=== PATIENT | male | born 1950 | race Caucasian/White ===

== ENCOUNTER 2018-10-30 19:16 | Observation (INO) | payer OTHER ==
[2018-10-30 19:37] VITALS: BMI 31.3
--- NOTE | 2018-10-30 19:56 | PDOC ---
Attending Attestation - Resident Resident Name: Clark Ramírez - ED Attending Attestation I have performed the following: I have examined & evaluated the patient, The case was reviewed & discussed with the resident, I agree w/resident's findings & plan - HPI HPI: 10/30/18 21:50 see resident hpi - Physicial Exam PE: 10/30/18 21:50 agree with resident exam - Medical Decision Making 10/30/18 21:50 68 yo male with chest pain EKG shows a normal sinus rhythm at 86 bpm with a right bundle-branch block There is no old available for comparison First troponin is within normal limits Patient will be held for observation for serial troponins due to patient's age and lack of previous/baseline stress testing in the past
--- NOTE | 2018-10-30 19:59 | PDOC ---
History of Present Illness - General Chief Complaint: Chest Pain Stated Complaint: CHEST PAIN Time Seen by Provider: 10/30/18 19:45 History Source: Patient Exam Limitations: No Limitations - History of Present Illness Initial Comments: 10/30/18 19:58 68M with no PMH (borderline diabetes documented on prior visit) who presents to the ER with complaints of chest pain. The patient states that around 1500 today , he developed L sided chest pain which lasted for 20-30 minutes and resolved on its own. About 1 hour after, he developed retrosternal chest pressure, improving since its onset, nonradiating, atraumatic, nonreproducible, nonpleuritic, without nausea, vomiting, diaphoresis, palpitations, shortness of breath, or lightheadedness. Past History - Past Medical History Allergies/Adverse Reactions: Allergies Allergy/AdvReac Type Severity Reaction Status Date / Time No Known Allergies Allergy Verified 10/18/17 10:06 Home Medications: Ambulatory Orders Meclizine HCl [Antivert -] 25 mg PO TID #21 tablet 10/18/17 Metformin HCl [Glucophage] 500 mg PO BID 10/18/17 COPD: No Diabetes: Yes (BORDERLINE) - Surgical History Appendectomy: Yes (29YRS AGO) - Immunization History Immunization Up to Date: Yes - Suicide/Smoking/Psychosocial Hx Smoking History: Never smoked Have you smoked in the past 12 months: No Hx Alcohol Use: Yes (socially) Drug/Substance Use Hx: No Substance Use Type: Alcohol Review of Systems - Review of Systems Able to Perform ROS?: Yes Comments:: 10/30/18 20:12 GENERAL/CONSTITUTIONAL: No fever or chills. No weakness. HEAD, EYES, EARS, NOSE AND THROAT: No change in vision. No ear pain or discharge. No sore throat. CARDIOVASCULAR: + for chest pain. No palpitations or lightheadedness. RESPIRATORY: No cough, wheezing, shortness of breath, or hemoptysis. GASTROINTESTINAL: No abdominal pain, nausea, vomiting, diarrhea, or constipation. GENITOURINARY: No dysuria, frequency, hematuria, or change in urination. MUSCULOSKELETAL: No joint or muscle swelling or pain. No neck or back pain. SKIN: No rash or lesions. NEUROLOGIC: No headache, numbness, tingling, focal weakness, loss of consciousness, or change in strength/sensation. Is the patient limited [place] Islander proficient: No *Physical Exam - Vital Signs Last Vital Signs Temp Pulse Resp BP Pulse Ox 98.8 F 95 H 19 120/79 98 10/30/18 19:30 10/30/18 19:30 10/30/18 19:30 10/30/18 19:30 10/30/18 19:30 - Physical Exam Comments: 10/30/18 20:12 GENERAL: Well developed, well nourished. Awake and alert. No acute distress. HEENT: Normocephalic, atraumatic. Hearing grossly normal. Moist mucous membranes. PERRLA, EOMI. No conjunctival pallor. Sclera are non-icteric. NECK: Supple. Full ROM. No JVD. CARDIOVASCULAR: Regular rate and rhythm. No murmurs, rubs, or gallops. PULMONARY: No evidence of respiratory distress. Lungs clear to auscultation bilaterally. No wheezing, rales or rhonchi. ABDOMINAL: Soft. Non-tender. Non-distended. No rebound or guarding. GENITOURINARY: No CVA tenderness bilaterally. MUSCULOSKELETAL: No reproducible pain in chest wall. Normal range of motion at all joints. No bony deformities or tenderness. EXTREMITIES: No cyanosis. No clubbing. No edema. No calf tenderness or swelling. SKIN: Warm and dry. Normal capillary refill. No rashes. No jaundice. NEUROLOGICAL: Alert, awake, appropriate. Cranial nerves 2-12 grossly intact. Normal speech. Gait is normal without ataxia. PSYCHIATRIC: Cooperative. Good eye contact. Appropriate mood and affect. Heart Score/ECG Review - History History: Moderately suspicious - Electrocardiogram EKG: Non specific repolarization disturbance - Age Age: >/= 65 - Risk Factors Based on the list above the patient has:: No risk factors known - Troponin Troponin: </= normal limit - Score Heart Score - Total: 4 #1 ECG reviewed & interpreted by me at: 20:18 General ECG Interpretation: Sinus Rhythm, Normal Rate, Normal Intervals, No acute ischemic changes Compared to previous ECG there are: No significant change 10/30/18 20:18 NSR vent rate 90 WV 172 QRS 138 QTc 476 RBBB noted, unchanged from 2018 No STD or MEGHANA No signs of acute ischemia ED Treatment Course - LABORATORY CBC & Chemistry Diagram: 10/30/18 20:10 10/30/18 20:10 Medical Decision Making - Medical Decision Making 10/30/18 20:13 68M with no PMH who presents with improving chest pressure since 1500 today. He denies red flag associated symptoms including SOB, diaphoresis, radiation, pleurisy. Pt was given 2 nitro tabs and "a spray" by EMS which may have caused his improvement of symptoms. EKG unchanged from 2018. Pt resting comfortably but still stating that he has CP. Will give 162 asa. Pending CBC, CMP, troponin , and CXR. Likely obs for ACS workup as pt has had no prior echo's, stress, or cath. 10/30/18 21:33 CBC, CMP, trop negative. CXR pending. Will admit for ACS workup. 10/30/18 22:18 Pt endorsed to hospitalist team for admission. CXR negative on preliminary read. *DC/Admit/Observation/Transfer Diagnosis at time of Disposition: Chest pain Qualifiers: Chest pain type: unspecified Qualified Code(s): R07.9 - Chest pain, unspecified - Discharge Dispostion Condition at time of disposition: Guarded Decision to Admit order: Yes - Referrals Referrals: ON STAFF,NOT [Primary Care Provider] - - Patient Instructions - Post Discharge Activity
[2018-10-30 20:25] LABS: BASO % 0.9 % (0-2.0); EOS % 4.1 % (0-4.5); HEMATOCRIT 48.7 % (35.4-49); LYMPH % 42.4 % (8-40); MCH 30.3 pg (25.7-33.7); MCHC 32.9 g/dl (32.0-35.9); MEAN CELL VOLUME 92.2 fl (80-96); MEAN PLT VOLUME 8.8 fl (7.5-11.1); MONO % 10.1 % (3.8-10.2); NEUT % 42.5 % (42.8-82.8); PLATELET COUNT 177 K/MM3 (134-434); RBC 5.28 M/mm3 (4.00-5.60); RDW 14.3 % (11.9-15.9); WHITE BLOOD COUNT 5.1 K/mm3 (4.0-10.0)
[2018-10-30 20:39] LABS: INR 1.08 (0.83-1.09); PROTHROMBIN TIME (PATIENT) 12.8 SEC (9.7-13.0)
[2018-10-30 20:55] LABS: ALBUMIN 3.8 g/dl (3.4-5.0); ALK PHOS 62 U/L (45-117); ANION GAP 8 MMOL/L (8-16); BILIRUBIN,TOTAL 0.4 mg/dL (0.2-1); BLOOD UREA NITROGEN 13.9 mg/dL (7-18); CALCIUM 9.6 mg/dL (8.5-10.1); CHLORIDE 106 mmol/L (98-107); CO2 26 mmol/L (21-32); CREATININE 1.4 mg/dL (0.55-1.3); GLUCOSE,RANDOM 102 mg/dL (74-106); POTASSIUM 4.3 mmol/L (3.5-5.1); SGOT/AST 19 U/L (15-37); SGPT/ALT 29 U/L (13-61); SODIUM 140 mmol/L (136-145); TOT PROT 7.2 g/dl (6.4-8.2)
[2018-10-31] MEDS ORDERED: HEPARIN NA (PORCINE) 5,000 UNITS/ML 1ML VIAL SQ SCH ×2 (02:00→07:01)
--- NOTE | 2018-10-31 04:50 | PN ---
Teaching Attending Note Name of Resident: Armani Lopez ATTENDING PHYSICIAN STATEMENT I saw and evaluated the patient. I reviewed the resident's note and discussed the case with the resident. I agree with the resident's findings and plan as documented. SUBJECTIVE: 68yo man with prediabetes experienced chest pain which started 3pm on 10/30, while he was driving. Lasted 20 minutes and disappeared. Nonradiating, no SOB. OBJECTIVE: Last Vital Signs Temp Pulse Resp BP Pulse Ox 97.7 F 69 17 124/85 96 10/31/18 00:03 10/31/18 00:03 10/31/18 00:03 10/31/18 00:03 10/31/18 00:03 gen -nad, aaox3 heent -at, nc neck supple cv-s1+S2+rrr chest - no pain on palpation, breaths b/l clear ext - no pedal edema or clubbing Abnormal Lab Results 10/30/18 10/30/18 20:10 20:10 Neutrophils % 42.5 L Lymphocytes % 42.4 H Creatinine 1.4 H ASSESSMENT AND PLAN: chest pain-now resolved -r/o acs - tele/obs -trend trops -echo -cardiology consult -ngl prn -cardiac stress test -lipid panel, a1c -dvt ppx
[2018-10-31] MEDS: INSULIN SLIDING SCALE (NOVOLOG) 1 VIAL SQ SCH ×2 (07:11→11:29)
[2018-10-31 07:35] LABS: BASO % 0.7 % (0-2.0); EOS % 3.3 % (0-4.5); HEMATOCRIT 45.9 % (35.4-49); HEMOGLOBIN 15.5 GM/dL (11.7-16.9); LYMPH % 40.4 % (8-40); MCH 30.8 pg (25.7-33.7); MCHC 33.7 g/dl (32.0-35.9); MEAN CELL VOLUME 91.4 fl (80-96); MEAN PLT VOLUME 9.1 fl (7.5-11.1); MONO % 9.8 % (3.8-10.2); NEUT % 45.8 % (42.8-82.8); PLATELET COUNT 168 K/MM3 (134-434); RBC 5.02 M/mm3 (4.00-5.60); RDW 14.7 % (11.9-15.9); WHITE BLOOD COUNT 5.1 K/mm3 (4.0-10.0)
--- NOTE | 2018-10-31 07:44 | HP ---
CHIEF COMPLAINT: Chest pain for the past 10 hours PCP: HISTORY OF PRESENT ILLNESS: This is a 68 year old male with PMH significant for borderline DM. He presents with chest pain for the past 10 hours. It began while he was driving, initially in left axilla, shifted to a substernal position over the next hour. The pain was sudden in onset, 8/10 in intensity, pinching in quality, constant in nature , non radiating, no aggravating factors, and relieved by nitroglycerin. The pain is non reproducible and not pleuritic. After he felt the pain, he called EMS, who administered nitroglycerin sublingually. He states that his pain resolved shortly afterwards, and has not been in pain in the ER since arriving. He has no associated complaints of nausea, vomiting, diarrhea, fevers, chills, or SOB. ER course was notable for: (1) EKG: NSR with possible RBBB (2) Trops negative Recent Travel: None PAST MEDICAL HISTORY: Had similar episode of chest pain while driving 3 years ago, resolved spontaneously Pre-diabetes. 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 Smokinpack per day for 10 years, quit over 20 years ago Alcohol: 3-4 shots of cognac several nights a week Drugs: cocaine once a week for 3-4 years, last use in Family History: Brother had [place] at the age of 50-55 Allergies No Known Allergies Allergy (Verified 10/18/17 10:06) HOME MEDICATIONS: Home Medications Medication Instructions Recorded Metformin HCl [Glucophage] 500 mg PO BID 10/18/17 REVIEW OF SYSTEMS CONSTITUTIONAL: Absent: fever, chills, diaphoresis, generalized weakness, malaise, loss of appetite, weight change HEENT: Absent: rhinorrhea, nasal congestion, throat pain, throat swelling, difficulty swallowing, mouth swelling, ear pain, eye pain, visual changes CARDIOVASCULAR: chest pain Absent: chest pain, syncope, palpitations, irregular heart rate, lightheadedness , peripheral edema RESPIRATORY: Absent: cough, shortness of breath, dyspnea with exertion, orthopnea, wheezing, stridor, hemoptysis GASTROINTESTINAL: Absent: abdominal pain, abdominal distension, nausea, vomiting, diarrhea, constipation, melena, hematochezia GENITOURINARY: Absent: dysuria, frequency, urgency, hesitancy, hematuria, flank pain, genital pain MUSCULOSKELETAL: Absent: myalgia, arthralgia, joint swelling, back pain, neck pain SKIN: Absent: rash, itching, pallor HEMATOLOGIC/IMMUNOLOGIC: Absent: easy bleeding, easy bruising, lymphadenopathy, frequent infections ENDOCRINE: Absent: unexplained weight gain, unexplained weight loss, heat intolerance, cold intolerance NEUROLOGIC: Absent: headache, focal weakness or paresthesias, dizziness, unsteady gait, seizure, mental status changes, bladder or bowel incontinence PSYCHIATRIC: Absent: anxiety, depression, suicidal or homicidal ideation, hallucinations. PHYSICAL EXAMINATION Vital Signs - 24 hr 10/30/18 10/31/18 10/31/18 19:30 00:03 06:44 Temperature 98.8 F 97.7 F 97.5 F L Pulse Rate 95 H Pulse Rate [ 69 74 Left] Respiratory 19 17 18 Rate Blood Pressure 120/79 Blood Pressure 124/85 128/85 [Left Arm] O2 Sat by Pulse 98 96 97 Oximetry (%) GENERAL: Awake, alert, and fully oriented, in no acute distress. HEAD: Normal with no signs of trauma. EYES: Pupils equal, round and reactive to light, extraocular movements intact, sclera anicteric, conjunctiva clear. No lid lag. EARS, NOSE, THROAT: Ears normal, nares patent, oropharynx clear without exudates. Moist mucous membranes. NECK: Normal range of motion, supple without lymphadenopathy, JVD, or masses. LUNGS: Breath sounds equal, clear to auscultation bilaterally. No wheezes, and no crackles. No accessory muscle use. HEART: Regular rate and rhythm, normal S1 and S2 without murmur, rub or gallop. ABDOMEN: Soft, nontender, not distended, normoactive bowel sounds, no guarding, no rebound, no masses. No hepatomegaly or splenomegaly. MUSCULOSKELETAL: Normal range of motion at all joints. No bony deformities or tenderness. No CVA tenderness. UPPER EXTREMITIES: 2+ pulses, warm, well-perfused. No cyanosis. No clubbing. No peripheral edema. LOWER EXTREMITIES: 2+ pulses, warm, well-perfused. No calf tenderness. No peripheral edema. NEUROLOGICAL: Cranial nerves II-XII intact. Normal speech. Normal gait. PSYCHIATRIC: Cooperative. Good eye contact. Appropriate mood and affect. SKIN: Warm, dry, normal turgor, no rashes or lesions noted, normal capillary refill. Laboratory Results - last 24 hr 10/30/18 10/30/18 10/30/18 20:10 20:10 20:10 WBC 5.1 RBC 5.28 Hgb 16.0 Hct 48.7 MCV 92.2 MCH 30.3 MCHC 32.9 RDW 14.3 Plt Count 177 MPV 8.8 Absolute Neuts (auto) 2.2 Neutrophils % 42.5 L Lymphocytes % 42.4 H Monocytes % 10.1 Eosinophils % 4.1 Basophils % 0.9 Nucleated RBC % 0 PT with INR INR Sodium 140 Potassium 4.3 Chloride 106 Carbon Dioxide 26 Anion Gap 8 BUN 13.9 Creatinine 1.4 H Est GFR (CKD-EPI)AfAm 58.99 Est GFR (CKD-EPI)NonAf 50.90 POC Glucometer Random Glucose 102 Calcium 9.6 Magnesium 2.2 Total Bilirubin 0.4 AST 19 ALT 29 Alkaline Phosphatase 62 Creatine Kinase 127 Troponin I < 0.02 B-Natriuretic Peptide Total Protein 7.2 Albumin 3.8 10/30/18 10/30/18 10/31/18 20:10 21:49 01:19 WBC RBC Hgb Hct MCV MCH MCHC RDW Plt Count MPV Absolute Neuts (auto) Neutrophils % Lymphocytes % Monocytes % Eosinophils % Basophils % Nucleated RBC % PT with INR 12.80 INR 1.08 Sodium Potassium Chloride Carbon Dioxide Anion Gap BUN Creatinine Est GFR (CKD-EPI)AfAm Est GFR (CKD-EPI)NonAf POC Glucometer Random Glucose Calcium Magnesium Total Bilirubin AST ALT Alkaline Phosphatase Creatine Kinase 146 Troponin I < 0.02 B-Natriuretic Peptide 8.0 Total Protein Albumin 10/31/18 07:07 WBC RBC Hgb Hct MCV MCH MCHC RDW Plt Count MPV Absolute Neuts (auto) Neutrophils % Lymphocytes % Monocytes % Eosinophils % Basophils % Nucleated RBC % PT with INR INR Sodium Potassium Chloride Carbon Dioxide Anion Gap BUN Creatinine Est GFR (CKD-EPI)AfAm Est GFR (CKD-EPI)NonAf POC Glucometer 118 Random Glucose Calcium Magnesium Total Bilirubin AST ALT Alkaline Phosphatase Creatine Kinase Troponin I B-Natriuretic Peptide Total Protein Albumin ASSESSMENT/PLAN: 68 year old male with PMH significant for borderline DM. He presents with chest pain for the past 10 hours, admitted to r/o ACS. #Chest pain-now resolved -r/o acs - Trops negative, continue to trend - Echo ordered - Cardiology consult placed for possible cardiac stress test - Lipid profile ordered - On tele monitoring #Hx of pre-diabetes - HbA1c ordered - BGM - Novolog SS #FEN - Mg ordered #DVT PE - Heparin 5000 SQ #Code status - Full code Visit type - Emergency Visit Emergency Visit: Yes ED Registration Date: 10/30/18 Care time: The patient presented to the Emergency Department on the above date and was hospitalized for further evaluation of their emergent condition. - New Patient This patient is new to me today: Yes Date on this admission: 10/31/18 - Critical Care Critical Care patient: No ATTENDING PHYSICIAN STATEMENT I saw and evaluated the patient. I reviewed the resident's note and discussed the case with the resident. I agree with the resident's findings and plan as documented. SUBJECTIVE: OBJECTIVE: ASSESSMENT AND PLAN:
[2018-10-31 07:47] LABS: BLOOD UREA NITROGEN 12.7 mg/dL (7-18); CALCIUM 9.4 mg/dL (8.5-10.1); CREATININE 1.3 mg/dL (0.55-1.3)
--- NOTE | 2018-10-31 08:47 | PN ---
Progress Note, Physician History of Present Illness: This is a 68 year old male with PMH significant for borderline DM. He presents with chest pain for the past 10 hours. It began while he was driving, initially in left axilla, shifted to a substernal position over the next hour. The pain was sudden in onset, 8/10 in intensity, pinching in quality, constant in nature , non radiating, no aggravating factors, and relieved by nitroglycerin. The pain is non reproducible and not pleuritic. After he felt the pain, he called EMS, who administered nitroglycerin sublingually. He states that his pain resolved shortly afterwards, and has not been in pain in the ER since arriving. He has no associated complaints of nausea, vomiting, diarrhea, fevers, chills, or SOB. - Current Medication List Current Medications: Active Medications Heparin Sodium (Porcine) (Heparin -) 5,000 unit SQ TID SHERRIE Insulin Aspart (Novolog Vial Sliding Scale -) 1 vial SQ ACHS [facility]; Protocol Last Admin: 10/31/18 07:11 Dose: Not Given - Objective Vital Signs: Vital Signs Temperature 97.5 F L 10/31/18 06:44 Pulse Rate 74 10/31/18 06:44 Respiratory Rate 18 10/31/18 06:44 Blood Pressure 128/85 10/31/18 06:44 O2 Sat by Pulse Oximetry (%) 97 10/31/18 06:44 Labs: CBC, BMP 10/31/18 06:15 10/31/18 06:15 INR, PTT INR 1.08 (0.83-1.09) 10/30/18 20:10 Problem List - Problems (1) Pre-diabetes Code(s): R73.03 - PREDIABETES (2) Prophylactic measure Code(s): Z29.9 - ENCOUNTER FOR PROPHYLACTIC MEASURES, UNSPECIFIED (3) Chest pain Code(s): R07.9 - CHEST PAIN, UNSPECIFIED Qualifiers: Chest pain type: unspecified Qualified Code(s): R07.9 - Chest pain, unspecified
--- NOTE | 2018-10-31 11:01 | EKG ---
Test Reason : Blood Pressure : / mmHG Vent. Rate : 086 BPM Atrial Rate : 086 BPM P-R Int : 172 ms QRS Dur : 138 ms QT Int : 398 ms P-R-T Axes : 034 005 028 degrees QTc Int : 476 ms NORMAL SINUS RHYTHM RIGHT BUNDLE BRANCH BLOCK ABNORMAL ECG WHEN COMPARED WITH ECG OF 18-OCT-2017 10:17, NO SIGNIFICANT CHANGE WAS FOUND Confirmed by MAYRA COHEN MD ([id number]) on 10/31/2018 11:01:13 AM Referred By: Confirmed By:MAYRA COHEN MD
--- NOTE | 2018-10-31 11:30 | ECHO ---
Name: MAKSIM CHAPA Exam:Adult Echocardiogram Study Date: 10/31/2018 09:57 AM Age: 68 yrs Reason For Study: Chest pain Height: 67 in Weight: 200 lb BSA: 2.0 m2 MMode/2D Measurements & Calculations IVSd: 1.0 cm Ao root diam: 3.4 cm LVIDd: 3.9 cm LA dimension: 2.6 cm LVIDs: 2.5 cm LVPWd: 1.2 cm LVPWs: 1.1 cm EDV(Teich): 65.4 ml ESV(Teich): 21.3 ml LVOT diam: 2.1 cm LVLd ap4: 6.9 cm EDV(MOD-sp4): 51.0 ml LVLs ap4: 5.3 cm ESV(MOD-sp4): 26.0 ml SV(MOD-sp4): 25.0 ml Doppler Measurements & Calculations MV E max lambert: 53.3 cm/sec Ao V2 max: 110.1 cm/sec MV A max lambert: 86.4 cm/sec Ao max P.9 mmHg MV E/A: 0.62 Ao V2 mean: 76.8 cm/sec MV dec time: 0.23 sec Ao mean P.8 mmHg Ao V2 VTI: 18.8 cm RAMSEY(I,D): 3.3 cm2 RAMSEY(V,D): 2.9 cm2 LV V1 max P.4 mmHg SV(LVOT): 61.4 ml LV V1 mean P.8 mmHg LV V1 max: 92.8 cm/sec LV V1 mean: 63.0 cm/sec LV V1 VTI: 18.0 cm TR max lambert: 200.9 cm/sec PA V2 max: 107.9 cm/sec TR max P.1 mmHg PA max P.7 mmHg RVSP(TR): 26.1 mmHg Med Peak E' Lambert: 4.6 cm/sec RAP systole: 10.0 mmHg Med E/e': 11.6 Lat Peak E' Lambert: 5.4 cm/sec Lat E/e': 9.9 Procedure A two-dimensional transthoracic echocardiogram with color flow and Doppler was performed. Left Ventricle The left ventricular size, thickness and function are normal. The left ventricular ejection fraction is normal. E/A reversal consistent with but not diagnostic of poor LV compliance. The left ventricular w all motion is normal. Right Ventricle The right ventricle is not well visualized. The right ventricle is moderately dilated. The right vent ricular systolic function is mild to moderately reduced. Atria Normal left and right atrial size and function. Mitral Valve There is mild mitral valve thickening. There is no mitral valve stenosis. There is trace mitral regur gitation. Tricuspid Valve There is trivial tricuspid valve thickening. There is no tricuspid stenosis. There is Trace to mild t ricuspid regurgitation. Right ventricular systolic pressure is normal. Aortic Valve The aortic valve is not well visualized. No hemodynamically significant valvular aortic stenosis. No aortic regurgitation is present. Pulmonic Valve The pulmonic valve is not well visualized. Great Vessels The aortic root is normal size. Pericardium/Pleura There is no pericardial effusion. Interpretation Summary Clinical correlation is recommended. The left ventricular size, thickness and function are normal The left ventricular wall motion is normal. The left ventricular ejection fraction is normal. There is Trace to mild tricuspid regurgitation. Right ventricular systolic pressure is normal. The right ventricle is moderately dilated. The right ventricular systolic function is mild to moderately reduced. E/A reversal consistent with but not diagnostic of poor LV compliance There is trace mitral regurgitation. Clinical correlation is recommended. MD Patrick Hoffman 10/31/2018 11:30 AM
--- NOTE | 2018-10-31 11:46 | CON.CARD ---
Consult Consult Specialty:: Cardiology Referred by:: ER Reason for Consultation:: chest pain - History of Present Illness Chief Complaint: chest pain History of Present Illness: He is a 68 year old man history of borderline diabetes, given metformin but does not take it, who came to the ER 10/30/18 with chest pain 20-30 minutes nonexertional, retrosternal, with associated sob and diaphoresis. No palps, orthopnea, pnd or edema. No dizziness or syncope. Pain occurred while driving. Denies exertional symptoms. He denies recent travel or trauma. Echo 10/31/18 nlef, dilated RV - Alcohol/Substance Use Hx Alcohol Use: Yes (socially) - Smoking History Smoking history: Never smoked Have you smoked in the past 12 months: No Home Medications - Allergies Allergies/Adverse Reactions: Allergies Allergy/AdvReac Type Severity Reaction Status Date / Time No Known Allergies Allergy Verified 10/18/17 10:06 - Home Medications Home Medications: Ambulatory Orders Metformin HCl [Glucophage] 500 mg PO BID 10/18/17 Review of Systems - Review of Systems Constitutional: reports: No Symptoms Eyes: reports: No Symptoms HENT: reports: No Symptoms Neck: reports: No Symptoms Cardiovascular: reports: Chest Pain Respiratory: reports: No Symptoms Gastrointestinal: reports: No Symptoms Genitourinary: reports: No Symptoms Musculoskeletal: reports: No Symptoms Vital Signs: Vital Signs Temperature 97.5 F L 10/31/18 06:44 Pulse Rate 74 10/31/18 06:44 Respiratory Rate 18 10/31/18 06:44 Blood Pressure 128/85 10/31/18 06:44 O2 Sat by Pulse Oximetry (%) 99 10/31/18 09:14 Constitutional: Yes: No Distress, Calm Eyes: Yes: Conjunctiva Clear, EOM Intact HENT: Yes: Atraumatic, Normocephalic Neck: Yes: Supple, Trachea Midline Respiratory: Yes: Regular, CTA Bilaterally Gastrointestinal: Yes: Normal Bowel Sounds, Soft Cardiovascular: Yes: Regular Rate and Rhythm JVD: No Carotid Bruit: No PMI: Non-Displaced Heart Sounds: Yes: S1, S2 Musculoskeletal: Yes: WNL Extremities: Yes: WNL Edema: Yes Peripheral Pulses WNL: Yes - Other Data Labs, Other Data: CBC, BMP 10/31/18 06:15 10/31/18 06:15 INR, PTT INR 1.08 (0.83-1.09) 10/30/18 20:10 Troponin, BNP 10/30/18 10/30/18 10/31/18 20:10 21:49 01:19 Troponin I < 0.02 < 0.02 B-Natriuretic Peptide 8.0 10/31/18 06:15 Troponin I 0.02 B-Natriuretic Peptide Troponin, BNP 10/30/18 10/30/18 10/31/18 20:10 21:49 01:19 Troponin I < 0.02 < 0.02 B-Natriuretic Peptide 8.0 10/31/18 06:15 Troponin I 0.02 B-Natriuretic Peptide Imaging - Results Chest X-ray: Report Reviewed EKG: Report Reviewed Other: Report Reviewed (echo dilated RV) Assessment/Plan He is a 68 year old man history of borderline diabetes, given metformin but does not take it, who came to the ER 10/30/18 with chest pain 20-30 minutes nonexertional, retrosternal, with associated sob and diaphoresis. No palps, orthopnea, pnd or edema. No dizziness or syncope. Pain occurred while driving. Denies exertional symptoms. He denies recent travel or trauma. Echo 10/31/18 nlef, dilated RV. Plan: -needs CTA to rule out PE. -the patient wishes to leave, was told by hospitalist that he needs to stay for the test. -would defer ischemia work up for outpatient.
--- NOTE | 2018-10-31 15:03 | DS ---
Physical Exam: SUBJECTIVE: Patient seen and examined This is a 68 year old male with PMH significant for borderline DM. He presents with chest pain for the past 10 hours. It began while he was driving, initially in left axilla, shifted to a substernal position over the next hour. The pain was sudden in onset, 8/10 in intensity, pinching in quality, constant in nature , non radiating, no aggravating factors, and relieved by nitroglycerin. The pain is non reproducible and not pleuritic. After he felt the pain, he called EMS, who administered nitroglycerin sublingually. He states that his pain resolved shortly afterwards, and has not been in pain in the ER since arriving. He has no associated complaints of nausea, vomiting, diarrhea, fevers, chills, or SOB. OBJECTIVE: Vital Signs Period Temp Pulse Resp BP Sys/Reddy Pulse Ox Last 24 Hr 97.5 F-98.8 F 69-95 17-19 120-128/79-85 96-99 PHYSICAL EXAM GENERAL: The patient is awake, alert, and fully oriented, in no acute distress. HEAD: Normal with no signs of trauma. EYES: PERRL, extraocular movements intact, sclera anicteric, conjunctiva clear. ENT: Ears normal, nares patent, oropharynx clear without exudates, moist mucous membranes. NECK: Trachea midline, full range of motion, supple. LUNGS: Breath sounds equal, clear to auscultation bilaterally, no wheezes, no crackles, no accessory muscle use. HEART: Regular rate and rhythm, S1, S2 without murmur, rub or gallop. ABDOMEN: Soft, nontender, nondistended, normoactive bowel sounds, no guarding, no rebound, no hepatosplenomegaly, no masses. EXTREMITIES: 2+ pulses, warm, well-perfused, no edema. NEUROLOGICAL: Cranial nerves II through XII grossly intact. Normal speech, gait not observed. PSYCH: Normal mood, normal affect. SKIN: Warm, dry, normal turgor, no rashes or lesions noted. LABS Laboratory Results - last 24 hr 10/30/18 10/30/18 10/30/18 20:10 20:10 20:10 WBC 5.1 RBC 5.28 Hgb 16.0 Hct 48.7 MCV 92.2 MCH 30.3 MCHC 32.9 RDW 14.3 Plt Count 177 MPV 8.8 Absolute Neuts (auto) 2.2 Neutrophils % 42.5 L Lymphocytes % 42.4 H Monocytes % 10.1 Eosinophils % 4.1 Basophils % 0.9 Nucleated RBC % 0 PT with INR INR Sodium 140 Potassium 4.3 Chloride 106 Carbon Dioxide 26 Anion Gap 8 BUN 13.9 Creatinine 1.4 H Est GFR (CKD-EPI)AfAm 58.99 Est GFR (CKD-EPI)NonAf 50.90 POC Glucometer Random Glucose 102 Hemoglobin A1c % Calcium 9.6 Magnesium 2.2 Total Bilirubin 0.4 AST 19 ALT 29 Alkaline Phosphatase 62 Creatine Kinase 127 Creatine Kinase Index CK-MB (CK-2) Troponin I < 0.02 B-Natriuretic Peptide Total Protein 7.2 Albumin 3.8 Triglycerides Cholesterol Total LDL Cholesterol HDL Cholesterol 10/30/18 10/30/18 10/31/18 20:10 21:49 01:19 WBC RBC Hgb Hct MCV MCH MCHC RDW Plt Count MPV Absolute Neuts (auto) Neutrophils % Lymphocytes % Monocytes % Eosinophils % Basophils % Nucleated RBC % PT with INR 12.80 INR 1.08 Sodium Potassium Chloride Carbon Dioxide Anion Gap BUN Creatinine Est GFR (CKD-EPI)AfAm Est GFR (CKD-EPI)NonAf POC Glucometer Random Glucose Hemoglobin A1c % Calcium Magnesium Total Bilirubin AST ALT Alkaline Phosphatase Creatine Kinase 146 Creatine Kinase Index CK-MB (CK-2) Troponin I < 0.02 B-Natriuretic Peptide 8.0 Total Protein Albumin Triglycerides Cholesterol Total LDL Cholesterol HDL Cholesterol 10/31/18 10/31/18 10/31/18 06:15 06:15 06:15 WBC 5.1 RBC 5.02 Hgb 15.5 Hct 45.9 MCV 91.4 MCH 30.8 MCHC 33.7 RDW 14.7 Plt Count 168 MPV 9.1 Absolute Neuts (auto) 2.3 Neutrophils % 45.8 Lymphocytes % 40.4 H Monocytes % 9.8 Eosinophils % 3.3 Basophils % 0.7 Nucleated RBC % 0 PT with INR INR Sodium 140 Potassium 4.0 Chloride 105 Carbon Dioxide 27 Anion Gap 8 BUN 12.7 Creatinine 1.3 Est GFR (CKD-EPI)AfAm 64.52 Est GFR (CKD-EPI)NonAf 55.67 POC Glucometer Random Glucose 105 Hemoglobin A1c % Calcium 9.4 Magnesium 2.0 Total Bilirubin AST ALT Alkaline Phosphatase Creatine Kinase 176 Creatine Kinase Index 0.9 CK-MB (CK-2) 1.7 Troponin I 0.02 B-Natriuretic Peptide Total Protein Albumin Triglycerides 141 Cholesterol 197 Total LDL Cholesterol 136 H HDL Cholesterol 36 L 10/31/18 10/31/18 10/31/18 06:15 07:07 11:16 WBC RBC Hgb Hct MCV MCH MCHC RDW Plt Count MPV Absolute Neuts (auto) Neutrophils % Lymphocytes % Monocytes % Eosinophils % Basophils % Nucleated RBC % PT with INR INR Sodium Potassium Chloride Carbon Dioxide Anion Gap BUN Creatinine Est GFR (CKD-EPI)AfAm Est GFR (CKD-EPI)NonAf POC Glucometer 118 112 Random Glucose Hemoglobin A1c % 6.4 H Calcium Magnesium Total Bilirubin AST ALT Alkaline Phosphatase Creatine Kinase Creatine Kinase Index CK-MB (CK-2) Troponin I B-Natriuretic Peptide Total Protein Albumin Triglycerides Cholesterol Total LDL Cholesterol HDL Cholesterol HOSPITAL COURSE: Date of Admission:10/30/18 Date of Discharge: 10/31/18 - Problems (1) Pre-diabetes Resume metformin on discharge Code(s): R73.03 - PREDIABETES (2) Chest pain Troponins negative. TTE showed RV function was moderately reduced. CTA shows no evidence of PE. There are increased interstitial markings, which may explain the RV findings. Can work up as an outpatient at this point. Follow up with Dr Justo Flor 1-2 weeks. [phone] for appointment. Code(s): R07.9 - CHEST PAIN, UNSPECIFIED Qualifiers: Minutes to complete discharge: 45 Discharge Summary Reason For Visit: CHEST PAIN Current Active Problems Chest pain (Acute) Pre-diabetes (Acute) Prophylactic measure (Acute) Hospital Course: This is a 68 year old male with PMH significant for borderline DM. He presents with chest pain for the past 10 hours. It began while he was driving, initially in left axilla, shifted to a substernal position over the next hour. The pain was sudden in onset, 8/10 in intensity, pinching in quality, constant in nature , non radiating, no aggravating factors, and relieved by nitroglycerin. The pain is non reproducible and not pleuritic. After he felt the pain, he called EMS, who administered nitroglycerin sublingually. He states that his pain resolved shortly afterwards, and has not been in pain in the ER since arriving. He has no associated complaints of nausea, vomiting, diarrhea, fevers, chills, or SOB. (1) Pre-diabetes Resume metformin on discharge Code(s): R73.03 - PREDIABETES (2) Chest pain Troponins negative. TTE showed RV function was moderately reduced. CTA shows no evidence of PE. There are increased interstitial markings, which may explain the RV findings. Can work up as an outpatient at this point. Follow up with Dr Justo Flor 1-2 weeks. [phone] for appointment. Patient is stable for discharge home with follow up with cardiology as an outpatient Condition: Guarded - Instructions Diet, Activity, Other Instructions: You were admitted to the ED with complaints of chest pain. Cardiac labs were sent that were normal . A Cat Scan was done that did not show any pulmonary clots. It is recommended that you schedule an appointment with Dr Flor for a cardiac stress test. If the pain returns or gets worse come back to the ED. You can resume all your medications and diet. Referrals: Richie Flor MD [Staff Physician] - 2 Weeks - Home Medications Comprehensive Discharge Medication List: Ambulatory Orders Metformin HCl [Glucophage] 500 mg PO BID 10/18/17 Insulin Sliding Scale [Novolog Vial Sliding Scale -] 1 vial SQ ACHS units 10/31 Problem List - Problems (1) Pre-diabetes Code(s): R73.03 - PREDIABETES (2) Prophylactic measure Code(s): Z29.9 - ENCOUNTER FOR PROPHYLACTIC MEASURES, UNSPECIFIED (3) Chest pain Code(s): R07.9 - CHEST PAIN, UNSPECIFIED Qualifiers: Chest pain type: unspecified Qualified Code(s): R07.9 - Chest pain, unspecified This patient is new to me today: Yes Date on this admission: 10/31/18 Emergency Visit: Yes ED Registration Date: 10/30/18 Care time: The patient presented to the Emergency Department on the above date and was hospitalized for further evaluation of their emergent condition. Critical Care patient: No - Discharge Referral Referred to [facility] No
[2018-10-31 15:05] VITALS: BP 127/83; PULSE 81; TEMP 98
== END 2018-10-31 15:17 | disposition home or self-care (01) ==
LOC: JER 19:16 → JERBED 21:25
PROVIDERS: ADMIT Internal Medicine; ATTEND Nurse Practitioner Acute Care
DX: R07.89 Other chest pain (principal); R73.02 Impaired glucose tolerance (oral); Z79.84 Long term (current) use of oral hypoglycemic drugs; Z29.9 Encounter for prophylactic measures, unspecified
CPT/HCPCS: 36415; 71045-TC-FY; 71275-TC; 80048; 80053; 80061; 82550; 82553; 82962; 83036; 83721; 83735; 83880; 84484; 85025; 85610; 93005; 93010; 93306-TC; 99285-25; G0378

== ENCOUNTER 2019-05-05 12:06 | Emergency (ER) | payer OTHER ==
[2019-05-05 12:11] VITALS: TEMP 98.3; BMI 31.8
--- NOTE | 2019-05-05 13:42 | PDOC ---
History of Present Illness - General Chief Complaint: Headache Stated Complaint: HEADACHES Time Seen by Provider: 05/05/19 13:40 - History of Present Illness Initial Comments: HPI: 69yo M with PMH of ulcers presenting with generalized weakness x 5 days. Patient has had a poor appetite and did not really eat anything today, but is hungry currently. Reports black stools since yesterday which he has never had before. Presents today because he had a headache this morning that gradually got worse, but is now a 2-3/10. This headache is consistent with prior headaches. Denies abdominal pain. May have some urinary frequency. No fevers, chills, chest pain, or shortness of breath. PCP: Dr. Garcia on [facility] ROS: Constitutional: no fever, no chills HEENT: no throat pain, no dysphagia Cardiovascular: no chest pain, no palpitations Respiratory: no cough, no shortness of breath Gastrointestinal: no abdominal pain, no nausea Genitourinary: no dysuria, no hematuria Musculoskeletal: no myalgia, no arthralgia Skin: no rash, no itching Neurologic: +headache, +weakness Psych: no agitation, no anxiety PE: General: Awake, alert, and fully oriented, in no acute distress Head: No signs of trauma Eyes: EOMI, sclera anicteric ENT: Moist mucus membranes Neck: Normal ROM, supple Lungs: Lungs clear, Normal breath sounds Cardio: Regular rhythm, S1 and S2 present Abdomen: Soft, nontender. No guarding, no rebound, no masses Extremities: Normal range of motion, Distal pulses present Skin: Warm, Dry, normal turgor Neurologic: Cranial nerves II through XII intact. Normal speech, sensation, strength, coordination, and gait. Rectal: The skin is without erythema or induration. No external hemorrhoids, fissures, skin tags, warts, or discharge. Sphincter tone normal. There are no masses palpated on digital exam ED Course/MDM: DDX including but not limited to ACS, UTI, PNA, anemia, metabolic derangement Labs, EKG, CXR 05/05/19 13:42 EKG: rate 84, Qtc 479, NSR, RBBB also present on EKG 10/30/2018 05/05/19 15:36 CBC WBC 4.6 K/mm3 (4.0-10.0) 05/05/19 14:45 RBC 5.58 M/mm3 (4.00-5.60) 05/05/19 14:45 Hgb 17.1 GM/dL (11.7-16.9) H 05/05/19 14:45 Hct 50.7 % (35.4-49) H 05/05/19 14:45 MCV 90.8 fl (80-96) 05/05/19 14:45 MCH 30.6 pg (25.7-33.7) 05/05/19 14:45 MCHC 33.7 g/dl (32.0-35.9) 05/05/19 14:45 RDW 13.7 % (11.9-15.9) 05/05/19 14:45 Plt Count 142 K/MM3 (134-434) 05/05/19 14:45 MPV 8.9 fl (7.5-11.1) 05/05/19 14:45 Absolute Neuts (auto) 2.8 K/mm3 (1.5-8.0) 05/05/19 14:45 Neutrophils % 61.3 % (42.8-82.8) D 05/05/19 14:45 Lymphocytes % 27.8 % (8-40) D 05/05/19 14:45 Monocytes % 10.0 % (3.8-10.2) 05/05/19 14:45 Eosinophils % 0.8 % (0-4.5) 05/05/19 14:45 Basophils % 0.1 % (0-2.0) 05/05/19 14:45 Nucleated RBC % 0 % (0-0) 05/05/19 14:45 No leuckoytosis or anemia Hgb is elevated; may be indicative of hemoconcentration CMP Sodium 141 mmol/L (136-145) 05/05/19 14:45 Potassium 4.1 mmol/L (3.5-5.1) 05/05/19 14:45 Chloride 105 mmol/L (98-107) 05/05/19 14:45 Carbon Dioxide 26 mmol/L (21-32) 05/05/19 14:45 Anion Gap 9 MMOL/L (8-16) 05/05/19 14:45 BUN 13.4 mg/dL (7-18) 05/05/19 14:45 Creatinine 1.7 mg/dL (0.55-1.3) H 05/05/19 14:45 Est GFR (CKD-EPI)AfAm 46.33 05/05/19 14:45 Est GFR (CKD-EPI)NonAf 39.97 05/05/19 14:45 Random Glucose 118 mg/dL (74-106) H 05/05/19 14:45 Calcium 8.6 mg/dL (8.5-10.1) 05/05/19 14:45 Total Bilirubin 0.6 mg/dL (0.2-1) 05/05/19 14:45 AST 27 U/L (15-37) 05/05/19 14:45 ALT 29 U/L (13-61) 05/05/19 14:45 Alkaline Phosphatase 67 U/L (45-117) 05/05/19 14:45 Creatine Kinase 190 U/L (26-308) 05/05/19 14:45 Creatine Kinase Index No Result Required. 05/05/19 14:45 CK-MB (CK-2) < 1.0 ng/mL (0.5-3.6) 05/05/19 14:45 Troponin I < 0.02 ng/ml (0.00-0.05) 05/05/19 14:45 Total Protein 7.6 g/dl (6.4-8.2) 05/05/19 14:45 Albumin 3.7 g/dl (3.4-5.0) 05/05/19 14:45 Electrolytes unremarkable Cr elevated; 1L NS given No transaminitis Tpn undetectable To treat patient for suspected UTI/prostatitis Encouraged him to keep hydrating Doxycycline sent to pharmacy Referral to urology Return precautions Stable for discharge Patient feeling better than he did this morning 05/05/19 16:40 CXR as reported by radiology: " EXAM#: TYPE/EXAM: RESULT: [id number] RAD/CHEST PA LAT Chest: Weakness. Cough. Single view of the chest has been submitted. There are clear lungs, unfolded aorta, normal byron and normal heart. The angles are sharp and the soft tissues are intact. There are de generative changes. An acute process is not seen. Since 10/30/2018 there is a better inspiration and no acute pathology. Impression: No acute chest pathology. Reported By: Greg Camp MD 05/05/19 [id number] " Past History - Past Medical History Allergies/Adverse Reactions: Allergies Allergy/AdvReac Type Severity Reaction Status Date / Time No Known Allergies Allergy Verified 05/05/19 12:11 Home Medications: Ambulatory Orders Metformin HCl [Glucophage] 500 mg PO BID 10/18/17 Insulin Sliding Scale [Novolog Vial Sliding Scale -] 1 vial SQ ACHS units 10/31/18 Doxycycline Monohydrate [Mondoxyne Nl] 100 mg PO BID #14 capsule 05/05/19 COPD: No Diabetes: Yes (BORDERLINE) - Surgical History Appendectomy: Yes (29YRS AGO) - Immunization History Immunization Up to Date: Yes - Psycho Social/Smoking Cessation Hx Smoking History: Never smoked Have you smoked in the past 12 months: No Hx Alcohol Use: Yes Drug/Substance Use Hx: No Substance Use Type: Alcohol *Physical Exam - Vital Signs Last Vital Signs Temp Pulse Resp BP Pulse Ox 98.3 F 107 H 18 103/76 99 05/05/19 12:08 05/05/19 12:08 05/05/19 12:08 05/05/19 12:08 05/05/19 12:08 ED Treatment Course - LABORATORY CBC & Chemistry Diagram: 05/05/19 14:45 05/05/19 14:45 Discharge - Discharge Information Problems reviewed: Yes Clinical Impression/Diagnosis: Weakness Condition: Stable Disposition: HOME - Additional Discharge Information Prescriptions: Doxycycline Monohydrate [Mondoxyne Nl] 100 mg PO BID #14 capsule - Follow up/Referral Referrals: ON STAFF,NOT [Primary Care Provider] - Helder Mohr MD., [Staff Physician] - - Patient Discharge Instructions Patient Printed Discharge Instructions: DI for Dehydration -- Adult Additional Instructions: You came into the emergency department after feeling weak. Lab work, Xray, and EKG did not indicate acute pathology. Eat and hydrate throughout the day to prevent dehydration and low blood sugar levels. We have referred you to a urologist. Call and make an appointment at the number provided. Your workup is not complete until you do so. Antibiotics sent to your pharmacy. Take as instructed. Follow up with your primary care physician within 72 hours. Call and make an appointment to further evaluate your weakness. Your workup is not complete until you do so. Immediate medical attention is required if you have: any chest pain, palpitation s, shortness of breath, severe headaches, changes in vision, episodes of fainting, focal numbness or weakness, any severe abdominal pain, any black tarry stool, or any new or concerning symptoms. If you think you are having an emergency, call for emergency medical services or present to the emergency department right away. - Post Discharge Activity
[2019-05-05 14:58] LABS: BASO % 0.1 % (0-2.0); EOS % 0.8 % (0-4.5); HEMATOCRIT 50.7 % (35.4-49); HEMOGLOBIN 17.1 GM/dL (11.7-16.9); LYMPH % 27.8 % (8-40); MCH 30.6 pg (25.7-33.7); MCHC 33.7 g/dl (32.0-35.9); MEAN CELL VOLUME 90.8 fl (80-96); MEAN PLT VOLUME 8.9 fl (7.5-11.1); NEUT % 61.3 % (42.8-82.8); PLATELET COUNT 142 K/MM3 (134-434); RBC 5.58 M/mm3 (4.00-5.60); RDW 13.7 % (11.9-15.9); WHITE BLOOD COUNT 4.6 K/mm3 (4.0-10.0)
[2019-05-05 15:30] LABS: ALBUMIN 3.7 g/dl (3.4-5.0); ALK PHOS 67 U/L (45-117); ANION GAP 9 MMOL/L (8-16); BILIRUBIN,TOTAL 0.6 mg/dL (0.2-1); BLOOD UREA NITROGEN 13.4 mg/dL (7-18); CALCIUM 8.6 mg/dL (8.5-10.1); CHLORIDE 105 mmol/L (98-107); CO2 26 mmol/L (21-32); CREATININE 1.7 mg/dL (0.55-1.3); GLUCOSE,RANDOM 118 mg/dL (74-106); POTASSIUM 4.1 mmol/L (3.5-5.1); SGOT/AST 27 U/L (15-37); SGPT/ALT 29 U/L (13-61); SODIUM 141 mmol/L (136-145); TOT PROT 7.6 g/dl (6.4-8.2)
[2019-05-05] MEDS ORDERED: SODIUM CHLORIDE 1,000 ML IV STA (15:44)
[2019-05-05 15:59] LABS: EPI CELLS >36 /HPF (0-5/HPF); HYALINE CASTS 48 /lpf (0-8); URINE APPEARANCE TURBID; URINE BACTERIA 7 /hpf (NEGATIVE); URINE BILIRUBIN 1+ (NEGATIVE); URINE COLOR DK YELLOW; URINE GLUCOSE (UA) NEGATIVE (NEGATIVE); URINE KETONE 1+ (NEGATIVE); URINE LEUK ESTERASE TRACE (NEGATIVE); URINE NITRITE POSITIVE (NEGATIVE); URINE PROTEIN 3+ (NEGATIVE); URINE WBC 27 /hpf (0-5)
--- NOTE | 2019-05-05 16:08 | PDOC ---
Attending Attestation - Resident Resident Name: Kristen Sanchez - ED Attending Attestation I have performed the following: I have examined & evaluated the patient, The case was reviewed & discussed with the resident, I agree w/resident's findings & plan, Exceptions are as noted - HPI HPI: 05/05/19 16:01 69 y/o male here in ED c/o not feeling well x 6 days, Pt says he came in to ED because his insisted he come in and get evaluated. Pt c/o fatigue, no fever, appetite, had a headache tat resolved with one motrin. Pt is non toxic appearing and not in acute distress - Physicial Exam PE: 05/05/19 16:07 general: {t seen lying in bed non toxic appearing and not in acute distress NecK: supple Lungs: + bs tyler cta Heart: S1S2 regular Abd: + bs abd soft no guarding or tenderness Ext: + pedal pulses Neuro: Pt is alert and oriented x3, [place] no , focal deficits - Medical Decision Making 05/05/19 16:10 69 y/o male c/o dec appetite, fatigue and slight headache that resolved with motrin, basic labs noted,Pt is clinically dehydrated with acute kidney injury,and abnormal urine. Pt given 1 liter of fluid in ED and will dc home with a trial of doxycycline in case of prosatitits as cause of malaise.Pt c/o urinary frequency unclear if this is acute or present for months. Pt says it is new but then says he had it for months and that his PCP was planning to refer him to urology. PT should f/u with pcp and with urology as clinically indicated. 05/05/19 17:19 05/06/19 07:01 Discharge - Discharge Information Problems reviewed: Yes Clinical Impression/Diagnosis: Weakness Condition: Stable Disposition: HOME - Additional Discharge Information Prescriptions: Doxycycline Monohydrate [Mondoxyne Nl] 100 mg PO BID #14 capsule - Follow up/Referral Referrals: Helder Mohr MD., MD [Staff Physician] - ON STAFF,NOT [Primary Care Provider] - - Patient Discharge Instructions Patient Printed Discharge Instructions: DI for Dehydration -- Adult Additional Instructions: You came into the emergency department after feeling weak. Lab work, Xray, and EKG did not indicate acute pathology. Eat and hydrate throughout the day to prevent dehydration and low blood sugar levels. We have referred you to a urologist. Call and make an appointment at the number provided. Your workup is not complete until you do so. Antibiotics sent to your pharmacy. Take as instructed. Follow up with your primary care physician within 72 hours. Call and make an appointment to further evaluate your weakness. Your workup is not complete until you do so. Immediate medical attention is required if you have: any chest pain, palpitations, shortness of breath, severe headaches, changes in vision, episodes of fainting, focal numbness or weakness, any severe abdominal pain, any black tarry stool, or any new or concerning symptoms. If you think you are having an emergency, call for emergency medical services or present to the emergency department right away. - Post Discharge Activity
[2019-05-05 17:07] VITALS: BP 123/85; PULSE 75
[2019-05-05 17:13] LABS: URINE RBC 22.9 /hpf (0-4)
--- NOTE | 2019-05-05 17:32 | EKG ---
Test Reason : Blood Pressure : / mmHG Vent. Rate : 084 BPM Atrial Rate : 084 BPM P-R Int : 154 ms QRS Dur : 142 ms QT Int : 406 ms P-R-T Axes : 039 031 030 degrees QTc Int : 479 ms NORMAL SINUS RHYTHM RIGHT BUNDLE BRANCH BLOCK ABNORMAL ECG WHEN COMPARED WITH ECG OF 30-OCT-2018 19:33, NO SIGNIFICANT CHANGE WAS FOUND Confirmed by MD Leal Daniel ([id number]) on 05/05/2019 5:32:14 PM Referred By: Confirmed By:Fred Leal MD
== END 2019-05-05 17:05 | disposition home or self-care (01) ==
LOC: JER 12:06
PROC: 3E0337Z Introduction of Electrolytic and Water Balance Substance into Peripheral Vein, Percutaneous Approach (ICD-10-PCS; principal; 2019-05-05)
DX: E86.0 Dehydration (principal); R53.1 Weakness; N17.9 Acute kidney failure, unspecified; E11.9 Type 2 diabetes mellitus without complications; Z79.4 Long term (current) use of insulin
CPT/HCPCS: 36415; 71046-TC-FY; 80053; 81003; 82272; 82550; 82553; 84484; 85025; 87086; 93005; 93010; 96360; 99285-25; J7030